=== PATIENT | male | born 1990 | race African-American/Black ===

== ENCOUNTER 2019-09-15 20:42 | Emergency (ER) | payer OTHER ==
[~2019-09-15] VITALS: Ht 180.3 cm; Wt 95.5 kg
[2019-09-15] MEDS ORDERED: LIDOCAINE 1% MDV 20ML VIAL IM ONE (23:15)
[2019-09-15 23:29] VITALS: BP 131/71
== END 2019-09-15 23:32 | disposition home or self-care (01) ==
LOC: M ED 20:42
DX: S61.411A Laceration without foreign body of right hand, initial encounter (principal); W26.0XXA Contact with knife, initial encounter; Y92.000 Kitchen of unspecified non-institutional (private) residence as the place of occurrence of the external cause; Y93.89 Activity, other specified; Y99.9 Unspecified external cause status